=== PATIENT | male | born 1945 | race Caucasian/White ===

== ENCOUNTER → 2016-11-11 | Outpatient (CLI) | payer MEDICARE | END | disposition home or self-care (01) | LOC: GMAB 10:39 | PROVIDERS: ATTEND Family Medicine | DX: Z12.5 Encounter for screening for malignant neoplasm of prostate (principal); I10 Essential (primary) hypertension; R56.9 Unspecified convulsions | CPT/HCPCS: 80185; 84443; G0103 ==

== ENCOUNTER → 2017-06-24 | Outpatient (CLI) | payer MEDICARE | END | disposition home or self-care (01) | LOC: GMAB 17:56 | PROVIDERS: ATTEND Family Medicine | DX: R56.9 Unspecified convulsions (principal) ==

== ENCOUNTER → 2017-12-17 | Outpatient (CLI) | payer MEDICARE | LOC: GMAB 10:42 | PROVIDERS: ATTEND Family Medicine | DX: R56.9 Unspecified convulsions (principal); I10 Essential (primary) hypertension; Z12.5 Encounter for screening for malignant neoplasm of prostate | CPT/HCPCS: 80185; G0103 ==

== ENCOUNTER 2018-03-13 22:10 | Emergency (ER) | payer MEDICARE, OTHER ==
--- NOTE | 2018-03-13 22:30 | ED.PDOC ---
History of Present Illness - General Chief Complaint: General Stated Complaint: Dizziness Time Seen by Provider: 03/13/18 22:26 Additional Information: 72 YEAR OLD WITH KNOWN HISTORY OF HTN CAD SP CABAG IN 2013 LONG STANDING HISTORY OF SEIZURE DISORDER ( GRAND MAL ) ON DILANTIN PRESENTS WITH HISTORY OF VERTIGO FOR LAST 24 HOURS HE HAS CHRONIC TINNITUS SOME LOSS OF HEARING HE HAS NO HEADACHE NO NUMBNESS OR WEAKNESS IN THE EXTREMITIES SYMPTOMS ARE WORSE WITH MOVEMENT OF HIS HEAD - History of Present Illness Allergies/Adverse Reactions: Allergies NO KNOWN ALLERGY Allergy (Verified 03/01/15 10:05) Home Medications: Ambulatory Orders Atorvastatin Calcium [Lipitor] 20 mg PO DAILY 02/27/15 Aspirin [Aspirin Adult Low Dose] 81 mg PO DAILY 03/01/15 Phenytoin Sodium Cap Extended [Dilantin Cap] 100 mg PO DAILY 03/01/15 Metoprolol Tartrate [Lopressor] 50 mg PO BID #60 tab 03/03/15 Diazepam [Valium] 2 mg PO Q8HRS #1 tab 03/13/18 Meclizine HCl [Antivert] 12.5 mg PO Q6HRS #30 tab 03/13/18 Past Medical History (General) - Patient Medical History Hx Seizures: Yes Hx Stroke: No Hx Asthma: No Hx of COPD: No Hx Cardiac Disorders: Yes Hx Congestive Heart Failure: No Hx Pacemaker: No Hx Hypertension: Yes Hx Diabetes: No Hx Gastroesophageal Reflux: No Hx MRSA: No - Vaccination History Hx Influenza Vaccination: No Hx Pneumococcal Vaccination: Yes - 2013 - Social History Hx Tobacco Use: Yes Hx Alcohol Use: No Hx Substance Use: No Hx Substance Use Treatment: No Hx Depression: No Hx Physical Abuse: No Hx Emotional Abuse: No Family Medical History - Family History Father Family History: Unknown Living Status: Hx Cardiac Disease: Yes Progress - Results/Orders Results/Orders: Laboratory Tests 03/13/18 03/13/18 03/13/18 22:34 22:34 22:34 WBC 6.2 RBC 4.81 Hgb 15.0 Hct 44.1 MCV 91.7 MCH 31.1 H MCHC 33.9 RDW 12.7 Plt Count 147 MPV 8.9 Absolute Neuts (auto) 3.60 Absolute Lymphs (auto) 1.80 Absolute Monos (auto) 0.60 Absolute Eos (auto) 0.20 Absolute Basos (auto) 0.00 Neutrophils % 58.4 Lymphocytes % 28.8 Monocytes % 9.3 H Eosinophils % 2.7 Basophils % 0.8 PT 10.5 INR 1.05 PTT (SP) 26.3 Sodium 138 Potassium 3.7 Chloride 104 Carbon Dioxide 25 Anion Gap 12.7 BUN 19 H Creatinine 1.40 H BUN/Creatinine Ratio 13.6 Random Glucose 133 H Serum Osmolality 279.9 Calcium 8.9 Total Bilirubin 0.3 AST 22 ALT 22 Alkaline Phosphatase 73 Serum Total Protein 6.8 Albumin 3.9 Globulin 2.9 Albumin/Globulin Ratio 1.3 Phenytoin 03/13/18 22:43 WBC RBC Hgb Hct MCV MCH MCHC RDW Plt Count MPV Absolute Neuts (auto) Absolute Lymphs (auto) Absolute Monos (auto) Absolute Eos (auto) Absolute Basos (auto) Neutrophils % Lymphocytes % Monocytes % Eosinophils % Basophils % PT INR PTT (SP) Sodium Potassium Chloride Carbon Dioxide Anion Gap BUN Creatinine BUN/Creatinine Ratio Random Glucose Serum Osmolality Calcium Total Bilirubin AST ALT Alkaline Phosphatase Serum Total Protein Albumin Globulin Albumin/Globulin Ratio Phenytoin 3.0 L WITH ANTIVERT AND VALIUM HE IS FEELING LITTLE BETTER CAN BE DISCHARGED HOME Departure - Departure Clinical Impression: Vertigo, CAD (coronary artery disease) of artery bypass graft, Seizure disorder Time of Disposition: 23:36 Disposition: Discharge to Home or Self Care Departure Forms: ED Discharge - Pt. Copy, Patient Portal Self Enrollment Diet: resume usual diet Referrals: CITLALI FITCH MD [Primary Care Provider] - 1-2 Weeks Prescriptions: Meclizine HCl [Antivert] 12.5 mg PO Q6HRS #30 tab Diazepam [Valium] 2 mg PO Q8HRS #1 tab Home Medications: Ambulatory Orders Atorvastatin Calcium [Lipitor] 20 mg PO DAILY 02/27/15 Aspirin [Aspirin Adult Low Dose] 81 mg PO DAILY 03/01/15 Phenytoin Sodium Cap Extended [Dilantin Cap] 100 mg PO DAILY 03/01/15 Metoprolol Tartrate [Lopressor] 50 mg PO BID #60 tab 03/03/15 Diazepam [Valium] 2 mg PO Q8HRS #1 tab 03/13/18 Meclizine HCl [Antivert] 12.5 mg PO Q6HRS #30 tab 03/13/18
[2018-03-13] MEDS ORDERED: MECLIZINE HCL 12.5 MG TAB PO ONE (22:34)
[2018-03-13] MEDS ORDERED: diazePAM 5 MG TAB PO ONE (22:34)
[2018-03-13 22:37] VITALS: TEMP 98.2
[2018-03-14 00:08] VITALS: BP 150/83; O2SAT 96
== END 2018-03-13 23:47 | disposition home or self-care (01) ==
LOC: ER 22:10
DX: R42 Dizziness and giddiness (principal); I25.10 Atherosclerotic heart disease of native coronary artery without angina pectoris; G40.909 Epilepsy, unspecified, not intractable, without status epilepticus; H93.19 Tinnitus, unspecified ear; I10 Essential (primary) hypertension; Z95.1 Presence of aortocoronary bypass graft; Z79.82 Long term (current) use of aspirin; Z79.899 Other long term (current) drug therapy; Z87.891 Personal history of nicotine dependence

== ENCOUNTER → 2018-04-10 | Outpatient (CLI) | payer MEDICARE ==
--- NOTE | 2018-04-11 06:42 | US ---
EXAM DESCRIPTION: Abdomen,Complete: Ultrasound. CLINICAL HISTORY: R10.12. Left upper quadrant pain. COMPARISON: None Available. TECHNIQUE: Transabdominal scannin-dimensional and Doppler modes. FINDINGS: Gallbladder: At least 2 echogenic shadowing gallstones. One adjacent to the neck measures 1.8 cm. Wall thickness 2.8 mm. No fluid. Nontender with transducer pressure. Common bile duct: 5.4 mm, normal caliber. Liver: Minimally increased echogenicity. Long axis of the right lobe is 13.9 cm. Normal ducts. Normal caliber and flow direction of the portal vein. Smooth capsule. No ascites. Pancreas: Normal size and echogenicity. Duct not seen. Abdominal aorta: Normal caliber from the proximal segment to the distal bifurcation. IVC: visualized; normal caliber. Spleen normal echogenicity; long axis measurement is 9.9 cm. Right kidney: 10.8 cm long axis. Midrenal cortical thickness 11 mm. Normal echogenicity. No hydronephrosis or perinephric fluid. Left kidney: 9.6 cm long axis. Midrenal cortical thickness 11 mm. Normal echogenicity. No hydronephrosis or perinephric fluid. IMPRESSION: 1. Cholelithiasis of the gallbladder with no wall thickening or fluid. Nontender with transducer pressure. Normal caliber of the common bile duct. 2. Borderline steatosis of the liver with normal size. Ducts and vascularity unremarkable. Pancreas is negative. 3. Bilateral kidneys with cortical thinning but normal echogenicity and no hydronephrosis. Spleen is unremarkable. Normal caliber of the abdominal aorta and IVC. Electronically signed by: Soham Garcia MD 04/11/2018 6:41 AM CDT
== END ==
LOC: US 13:24
PROVIDERS: ATTEND Family Medicine
DX: K80.20 Calculus of gallbladder without cholecystitis without obstruction (principal); K76.0 Fatty (change of) liver, not elsewhere classified; R10.12 Left upper quadrant pain

== ENCOUNTER 2018-05-23 19:59 | Emergency (ER) | payer MEDICARE, OTHER ==
--- NOTE | 2018-05-23 20:21 | ED.PDOC ---
History of Present Illness - General Chief Complaint: Cardiovascular Problem Stated Complaint: feeling jittery, heart "racy" Time Seen by Provider: 05/23/18 20:04 Source: patient Exam Limitations: no limitations - History of Present Illness Initial Comments: Ephraim De La Rosa 72 y/o male stated that he feels his abdomen sahking everytime he gets up from sleep and also on waking up in am for the last 2 days .seen Md yesterday for a follow up on his constipation and had dosage adjustments on Linszess medication for his constipation.Denies N/V or pain after eating. Timing/Duration: other - 2 days Severity: moderate Improving Factors: nothing Worsening Factors: nothing Associated Symptoms: other - see hpi Allergies/Adverse Reactions: Allergies NO KNOWN ALLERGY Allergy (Verified 03/01/15 10:05) Home Medications: Ambulatory Orders Atorvastatin Calcium [Lipitor] 20 mg PO DAILY 02/27/15 Aspirin [Aspirin Adult Low Dose] 81 mg PO DAILY 03/01/15 Phenytoin Sodium Cap Extended [Dilantin Cap] 100 mg PO DAILY 03/01/15 Metoprolol Tartrate [Lopressor] 50 mg PO BID #60 tab 03/03/15 Diazepam [Valium] 2 mg PO Q8HRS #1 tab 03/13/18 Meclizine HCl [Antivert] 12.5 mg PO Q6HRS #30 tab 03/13/18 Review of Systems - Review of Systems Gastrointestinal/Abdominal: States: see HPI All other Systems: Reviewed and Negative, No Change from Baseline Past Medical History (General) - Patient Medical History Hx Seizures: Yes Hx Stroke: No Hx Asthma: No Hx of COPD: No Hx Cardiac Disorders: Yes Hx Congestive Heart Failure: No Hx Pacemaker: No Hx Hypertension: Yes Hx Diabetes: No Hx Gastroesophageal Reflux: No Hx MRSA: No Surgical History: coronary bypass surgery, other - colonoscopy,EGD - Vaccination History Hx Influenza Vaccination: No Hx Pneumococcal Vaccination: Yes - 2013 - Social History Hx Tobacco Use: Yes Hx Alcohol Use: No Hx Substance Use: No Hx Substance Use Treatment: No Hx Depression: No Hx Physical Abuse: No Hx Emotional Abuse: No Family Medical History - Family History Father Family History: Unknown Living Status: Hx Cardiac Disease: Yes - dad Hx Family Cancer: Yes - pancreas-sister;pituitary-mom Physical Exam - Physical Exam General Appearance: Alert, Comfortable, No apparent distress Eye Exam: bilateral normal Ears, Nose, Throat: hearing grossly normal, normal ENT inspection, normal pharynx Neck: non-tender, full range of motion, supple Respiratory: chest non-tender, lungs clear, normal breath sounds Cardiovascular/Chest: normal peripheral pulses, regular rate, rhythm, no murmur Peripheral Pulses: radial,right: 2+, radial,left: 2+ Gastrointestinal/Abdominal: non tender, soft, no organomegaly, no pulsatile mass Back Exam: normal inspection, no CVA tenderness, no vertebral tenderness Extremity: no pedal edema, no calf tenderness Neurologic: alert, oriented x 3 Progress - Progress Progress: 05/23/18 20:32 Vital Signs - 8 hr 05/23/18 20:15 Temperature 97.3 F L Pulse Rate [ 72 left] Respiratory 18 Rate O2 Sat by Pulse 98 Oximetry - Results/Orders Results/Orders: 05/23/18 20:40 CARDIAC PANEL,ER Stat HEPATIC FUNCTION PANEL Stat PHENYTOIN (DILANTIN) Stat Laboratory Results - last 24 hr 05/23/18 05/23/18 20:40 21:00 WBC 6.7 RBC 4.81 Hgb 14.9 Hct 44.0 MCV 91.4 MCH 31.0 MCHC 33.9 RDW 13.2 Plt Count 165 MPV 9.0 Absolute Neuts (auto) 4.50 Absolute Lymphs (auto) 1.50 Absolute Monos (auto) 0.60 Absolute Eos (auto) 0.10 Absolute Basos (auto) 0.00 Neutrophils % 67.5 Lymphocytes % 22.4 Monocytes % 8.2 Eosinophils % 1.2 Basophils % 0.7 PT 10.7 INR 1.07 PTT (SP) 25.9 Sodium 140 Potassium 3.7 Chloride 103 Carbon Dioxide 28 Anion Gap 12.7 BUN 14 Creatinine 1.05 BUN/Creatinine Ratio 13.3 Random Glucose 113 H Serum Osmolality 280.7 Calcium 9.3 Magnesium 2.1 Total Bilirubin 0.4 Direct Bilirubin < 0.1 Indirect Bilirubin 0.3 AST 20 ALT 23 Alkaline Phosphatase 77 Creatine Kinase 93 CK-MB (CK-2) 1.6 Troponin I < 0.02 Serum Total Protein 6.9 Albumin 4.1 Urine Color Yellow Urine Appearance Clear Urine pH 6.0 Ur Specific [place] 1.010 Urine Protein Negative Urine Glucose (UA) Negative Urine Ketones Negative Urine Blood Negative Urine Nitrite Negative Urine Bilirubin Negative Urine Urobilinogen 0.2 Ur Leukocyte Esterase Negative Urine RBC 0 Urine WBC 0 Ur Epithelial Cells 0 Urine Bacteria Rare Phenytoin 2.9 L - EKG/XRAY/CT EKG: Sinus, no ST T wave changes Comments: HR-77;LAE CT Ordered: Yes - abd/pelvis: cholelithiasis no cholecystitis Departure - Departure Clinical Impression: Abdominal discomfort Cholelithiasis NOS Qualifiers: Cholelithiasis location: gallbladder Cholecystitis presence: without cholecystitis Biliary obstruction: without biliary obstruction Qualified Code(s) : K80.20 - Calculus of gallbladder without cholecystitis without obstruction Time of Disposition: 22:10 Disposition: Discharge to Home or Self Care Condition: Fair Departure Forms: ED Discharge - Pt. Copy, Patient Portal Self Enrollment Instructions: Constipation in Adults, Constipation, Adult (DC), High Fiber Diet , Gallstones (DC), Gallstones Referrals: JURGEN MERRILL MD [Primary Care Provider] - 1-2 Weeks Home Medications: Ambulatory Orders Atorvastatin Calcium [Lipitor] 20 mg PO DAILY 02/27/15 Aspirin [Aspirin Adult Low Dose] 81 mg PO DAILY 03/01/15 Phenytoin Sodium Cap Extended [Dilantin Cap] 100 mg PO DAILY 03/01/15 Metoprolol Tartrate [Lopressor] 50 mg PO BID #60 tab 03/03/15 Diazepam [Valium] 2 mg PO Q8HRS #1 tab 03/13/18 Meclizine HCl [Antivert] 12.5 mg PO Q6HRS #30 tab 03/13/18 Additional Instructions: Stop taking Linzess;call your primary Md 27 May 2018 for follow up;Return to ER as needed
[2018-05-23 20:23] VITALS: TEMP 97.3
--- NOTE | 2018-05-23 21:58 | CT ---
EXAM DESCRIPTION: Abdoment/Pelvis w/o Contrast CLINICAL HISTORY: abdominal discomfort COMPARISON: None Available. TECHNIQUE: Contiguous axial images of the abdomen and pelvis were obtained followed by reconstruction images. This exam was performed according to our departmental dose-optimization program, which includes automated exposure control, adjustment of the mA and/or kV according to patient size and/or use of iterative reconstruction technique. FINDINGS: There are calcified gallstones without pericholecystic fluid or gallbladder wall thickening. There is pancreatic atrophy. Fat but no bowel extends into a right inguinal hernia. There is scar at the left lung base. The liver, spleen, pancreas and kidneys are within normal limits. There is no hydronephrosis or renal stones. The gallbladder is otherwise unremarkable by CT criteria. Adrenal glands are within normal limits. Aorta is of normal caliber and tapering. There is no free fluid in the abdomen or pelvis. There is no bowel obstruction. There is no stranding of the mesenteric fat to suggest an inflammatory response. The appendix is within normal limits. There is no pericecal inflammation. IMPRESSION: Gallstones with no evidence of acute cholecystitis. No other acute abnormality. Electronically signed by: Soham Rosas 05/23/2018 9:57 PM SAMPLES AND REPAIRS PREPARER
[2018-05-23 22:21] VITALS: BP 133/94; O2SAT 98
== END 2018-05-23 22:21 | disposition home or self-care (01) ==
LOC: ER 19:59
DX: K80.20 Calculus of gallbladder without cholecystitis without obstruction (principal); I10 Essential (primary) hypertension; I51.9 Heart disease, unspecified; Z95.1 Presence of aortocoronary bypass graft; Z87.891 Personal history of nicotine dependence; Z79.82 Long term (current) use of aspirin; Z79.899 Other long term (current) drug therapy

== ENCOUNTER → 2018-08-10 | Emergency (ER) | payer MEDICARE, OTHER | LOC: ER 19:05 | DX: M62.838 Other muscle spasm (principal); Z53.21 Procedure and treatment not carried out due to patient leaving prior to being seen by health care provider ==

== ENCOUNTER 2018-08-14 15:15 | Emergency (ER) | payer MEDICARE, OTHER ==
[2018-08-14 15:43] VITALS: O2SAT 98
--- NOTE | 2018-08-14 16:34 | ED.PDOC ---
History of Present Illness - General Chief Complaint: General Stated Complaint: Shaking and abdominal pain Time Seen by Provider: 08/14/18 16:15 Source: patient Exam Limitations: no limitations - History of Present Illness Initial Comments: THIS PATIENT COMES IN WITH AN UNUSUAL PRESENTATION OF ABDOMINAL DISCOMFORT. HE VOICES THAT THE ABDOMEN SHAKES AND THEN HE GOES INTO A SHAKING SPELL THAT MIGHT LAST ONE HOUR OS SO. HE DOES HAVE SEIZURE DISORDERS BUT THE FAMILY SAYS THESE ARE NOT SEIZURES. HE HAS HAD ABOUT 3-4 EPISODES IN THE LAST 6 WEEKS. DENIES ANY FEVER. Timing/Duration: other - INTERMITTENT Severity: moderate Improving Factors: nothing Worsening Factors: nothing Associated Symptoms: denies symptoms, malaise Allergies/Adverse Reactions: Allergies NO KNOWN ALLERGY Allergy (Verified 08/14/18 15:43) Home Medications: Ambulatory Orders Atorvastatin Calcium [Lipitor] 20 mg PO DAILY 02/27/15 Aspirin [Aspirin Adult Low Dose] 81 mg PO DAILY 03/01/15 Phenytoin Sodium Cap Extended [Dilantin Cap] 100 mg PO DAILY 03/01/15 Metoprolol Tartrate [Lopressor] 50 mg PO BID #60 tab 03/03/15 Diazepam [Valium] 2 mg PO Q8HRS #1 tab 03/13/18 Review of Systems - Review of Systems Constitutional: States: no symptoms reported EENTM: States: no symptoms reported Respiratory: States: no symptoms reported Cardiology: States: no symptoms reported Gastrointestinal/Abdominal: States: abdominal pain, nausea Musculoskeletal: States: no symptoms reported Skin: States: no symptoms reported Neurological: States: no symptoms reported Endocrine: States: no symptoms reported Hematologic/Lymphatic: States: no symptoms reported Past Medical History (General) - Patient Medical History Hx Seizures: Yes Hx Stroke: No Hx Asthma: No Hx of COPD: No Hx Cardiac Disorders: Yes - triple bypass 5 years Hx Congestive Heart Failure: No Hx Pacemaker: No Hx Hypertension: Yes Hx Diabetes: No Hx Gastroesophageal Reflux: No Hx MRSA: No Surgical History: tonsillectomy, other - Vaccination History Hx Tetanus, Diphtheria Vaccination: No Hx Influenza Vaccination: No Hx Pneumococcal Vaccination: Yes Immunizations Up to Date: Yes - Social History Hx Tobacco Use: Yes Hx Alcohol Use: No Hx Substance Use: No Hx Substance Use Treatment: No Hx Depression: No Hx Physical Abuse: No Hx Emotional Abuse: No Family Medical History - Family History Father Family History: Unknown Living Status: Hx Cardiac Disease: Yes - dad Hx Family Cancer: Yes - pancreas-sister;pituitary-mom Physical Exam - Physical Exam General Appearance: Alert, No apparent distress, Well Developed, Well Groomed, Well Hydrated, Well Nourished Eye Exam: bilateral normal Ears, Nose, Throat: hearing grossly normal, normal ENT inspection Neck: non-tender, full range of motion, supple Respiratory: chest non-tender, lungs clear, normal breath sounds, no respiratory distress, no accessory muscle use Cardiovascular/Chest: normal peripheral pulses, regular rate, rhythm, no edema, no gallop, no JVD Peripheral Pulses: radial,right: 2+, radial,left: 2+ Gastrointestinal/Abdominal: normal bowel sounds, non tender, soft, no organomegaly, no pulsatile mass, other - NO MASSES NO HEPATOSPLENOMEGALY NOTED Rectal Exam: deferred Back Exam: normal inspection Extremity: normal range of motion, non-tender Progress - Results/Orders Results/Orders: 08/14/18 16:45 EKG STAT 08/14/18 18:16 Phenytoin Sodium Cap Extended [Dilantin Cap] 400 mg PO ONCE ONE Laboratory Results WBC 5.9 K/mm3 (4.8-10.8) 08/14/18 16:35 RBC 5.01 M/mm3 (4.70-6.10) 08/14/18 16:35 Hgb 15.6 gm/dL (14.0-18.0) 08/14/18 16:35 Hct 45.8 % (42.0-52.0) 08/14/18 16:35 MCV 91.3 fl (80.0-94.0) 08/14/18 16:35 MCH 31.2 pg (27.0-31.0) H 08/14/18 16:35 MCHC 34.1 g/dL (33.0-37.0) 08/14/18 16:35 RDW 12.7 % (11.5-14.5) 08/14/18 16:35 Plt Count 159 K/mm3 (130-400) 08/14/18 16:35 MPV 9.5 fl (7.40-10.4) 08/14/18 16:35 Absolute Neuts (auto) 4.00 K/uL (1.8-6.8) 08/14/18 16:35 Absolute Lymphs (auto) 1.30 K/uL (1.0-3.4) 08/14/18 16:35 Absolute Monos (auto) 0.50 K/uL (0.2-0.8) 08/14/18 16:35 Absolute Eos (auto) 0.10 K/uL (0.0-0.4) 08/14/18 16:35 Absolute Basos (auto) 0.00 K/uL (0.0-0.1) 08/14/18 16:35 Neutrophils % 68.3 % (42.0-78.0) 08/14/18 16:35 Lymphocytes % 21.5 % (20.0-50.0) 08/14/18 16:35 Monocytes % 8.6 % (2.0-9.0) 08/14/18 16:35 Eosinophils % 1.0 % (1.0-5.0) 08/14/18 16:35 Basophils % 0.6 % (0.0-2.0) 08/14/18 16:35 Sodium 139 mmol/L (135-145) 08/14/18 16:35 Potassium 3.7 mmol/L (3.6-5.0) 08/14/18 16:35 Chloride 104 mmol/L (101-111) 08/14/18 16:35 Carbon Dioxide 24 mmol/L (21-31) 08/14/18 16:35 Anion Gap 14.7 (12-18) 08/14/18 16:35 BUN 16 mg/dL (7-18) 08/14/18 16:35 Creatinine 0.87 mg/dL (0.6-1.3) 08/14/18 16:35 BUN/Creatinine Ratio 18.4 (10-20) 08/14/18 16:35 Random Glucose 104 mg/dL (70-105) 08/14/18 16:35 Serum Osmolality 279.0 mOsm/L (275-295) 08/14/18 16:35 Calcium 9.4 mg/dL (8.4-10.2) 08/14/18 16:35 Total Bilirubin 0.5 mg/dL (0.2-1.0) 08/14/18 16:35 AST 19 IU/L (10-42) 08/14/18 16:35 ALT 23 IU/L (10-60) 08/14/18 16:35 Alkaline Phosphatase 80 IU/L (42-121) 08/14/18 16:35 Serum Total Protein 7.4 gm/dL (6.4-8.2) 08/14/18 16:35 Albumin 4.2 g/dl (3.2-5.5) 08/14/18 16:35 Globulin 3.2 gm/dL (2.3-3.5) 08/14/18 16:35 Albumin/Globulin Ratio 1.3 (1.1-1.9) 08/14/18 16:35 Lipase 16 U/L (22-51) L 08/14/18 16:35 Urine Color Yellow (Yellow) 08/14/18 17:40 Urine Appearance Clear (Clear) 08/14/18 17:40 Urine pH 6.5 (4.5-7.8) 08/14/18 17:40 Ur Specific [place] 1.015 (1.005-1.030) 08/14/18 17:40 Urine Protein Negative mg/dL 08/14/18 17:40 Urine Glucose (UA) Negative mg/dL (Negative) 08/14/18 17:40 Urine Ketones Negative mg/dL (NEGATIVE) 08/14/18 17:40 Urine Blood Negative (Negative) 08/14/18 17:40 Urine Nitrite Negative 08/14/18 17:40 Urine Bilirubin Negative (NEGATIVE) 08/14/18 17:40 Urine Urobilinogen 0.2 mg/dL (0.2-1.0) 08/14/18 17:40 Ur Leukocyte Esterase Negative (Negative) 08/14/18 17:40 Urine RBC 0 /hpf 08/14/18 17:40 Urine WBC 0 /hpf 08/14/18 17:40 Ur Epithelial Cells 0 /hpf 08/14/18 17:40 Urine Bacteria 0 08/14/18 17:40 Phenytoin 3.5 ug/mL (10.0-20.0) L 08/14/18 16:35 Departure - Departure Clinical Impression: Seizure disorder, Shaking Time of Disposition: 18:19 Disposition: Discharge to Home or Self Care Condition: Good Departure Forms: ED Discharge - Pt. Copy, Patient Portal Self Enrollment Diet: resume usual diet Referrals: JURGEN MERRILL MD [Primary Care Provider] - 1-2 Weeks Home Medications: Ambulatory Orders Atorvastatin Calcium [Lipitor] 20 mg PO DAILY 02/27/15 Aspirin [Aspirin Adult Low Dose] 81 mg PO DAILY 03/01/15 Phenytoin Sodium Cap Extended [Dilantin Cap] 100 mg PO DAILY 03/01/15 Metoprolol Tartrate [Lopressor] 50 mg PO BID #60 tab 03/03/15 Diazepam [Valium] 2 mg PO Q8HRS #1 tab 03/13/18
--- NOTE | 2018-08-14 16:54 | RAD ---
EXAM DESCRIPTION: Chest,1 View CLINICAL HISTORY: 72 years Male, SOB COMPARISON: Previous study April 30, 2015 TECHNIQUE: AP portable chest. FINDINGS: Heart size is prominent with normal pulmonary vascularity. Sternotomy wires are present. No consolidating infiltrate. No pulmonary mass or worrisome nodule. No pneumothorax or pleural effusion. Bones are unremarkable. IMPRESSION: No acute process is identified in the chest. Electronically signed by: Arpit Dent MD 08/14/2018 4:51 PM MACHINERY CLEANER
[2018-08-14] MEDS ORDERED: PHENYTOIN SODIUM CAP EXTENDED 100 MG CAP PO ONE (18:16)
[2018-08-14 18:48] VITALS: BP 136/72; TEMP 97.3
== END 2018-08-14 18:48 | disposition home or self-care (01) ==
LOC: ER 15:15
DX: G40.909 Epilepsy, unspecified, not intractable, without status epilepticus (principal); R10.9 Unspecified abdominal pain; I51.9 Heart disease, unspecified; I10 Essential (primary) hypertension; Z95.1 Presence of aortocoronary bypass graft; Z87.891 Personal history of nicotine dependence; Z79.82 Long term (current) use of aspirin; Z79.899 Other long term (current) drug therapy

== ENCOUNTER → 2018-08-19 | Outpatient (CLI) | payer MEDICARE, OTHER ==
--- NOTE | 2018-08-19 13:14 | US ---
EXAM DESCRIPTION: Abdomen,Complete CLINICAL HISTORY: IRRITABLE BOWEL SYNDROME WITH CONSTIPATION COMPARISON: Previous abdominal sonogram April 10, 2018, CT abdomen and pelvis May 23, 2018 TECHNIQUE: Complete abdominal ultrasound FINDINGS: Visualized portions of the pancreas are unremarkable. No peripancreatic fluid. Bowel gas obscures some areas. Normal caliber of the aorta. Normal appearance of the inferior vena cava. Liver parenchyma is homogeneous in texture with normal echogenicity. No liver mass or intrahepatic bile duct dilatation. No liver surface irregularity. Normal appearance of hepatic veins and portal vein. Gallbladder appears normal in size. Positive shadowing intraluminal gallstones measuring up to 1.6 cm. No gallbladder wall thickening. Sonographic Carpenter sign was reported as negative. Common bile duct is normal in caliber measuring 4.0 mm. The right kidney measures 10.4 cm in length. Normal renal cortical echogenicity. The renal cortical thickness appears normal. No right renal mass, shadowing stone or cyst. There is no hydronephrosis. Spleen is normal in size. No focal splenic lesion. The left kidney measures 10 cm in length. Normal renal cortical echogenicity. Cortex appears mildly thinned diffusely. No left renal mass, shadowing stone or cyst. There is no hydronephrosis. No change compared to the previous sonogram April 10, 2018. Gallstones were seen on the CT abdomen May 23, 2018. IMPRESSION: Gallstones without other changes to suggest acute cholecystitis. Electronically signed by: Arpit Dent MD 08/19/2018 1:11 PM FILTER ASSEMBLER
== END ==
LOC: US 08:25
PROVIDERS: ATTEND Family Medicine
DX: K58.1 Irritable bowel syndrome with constipation (principal); K80.20 Calculus of gallbladder without cholecystitis without obstruction

== ENCOUNTER → 2018-09-15 | Outpatient (CLI) | payer MEDICARE | LOC: GMAE 11:56 | PROVIDERS: ATTEND Family Medicine | DX: R56.9 Unspecified convulsions (principal) ==

== ENCOUNTER 2019-05-14 10:14 | Emergency (ER) | payer MEDICARE, OTHER ==
[2019-05-14] MEDS ORDERED: SODIUM CHLORIDE 0.9% (FLUSH) 10 ML SYG IV PRN (10:25)
--- NOTE | 2019-05-14 10:29 | ED.PDOC ---
History of Present Illness - General Chief Complaint: General Stated Complaint: Uncontrolled shaking to stomach Time Seen by Provider: 05/14/19 10:21 Source: patient, RN notes reviewed, Vital Signs reviewed, family - History of Present Illness Initial Comments: 73 yo male that presents to ED for "shaking" in upper abdomen for the past 30 minutes. States he feels "shaking in bilateral upper abdomen that he cannot stop. Denies CP, abdominal pain, NVD, fever, chills. Has had constipation which is chronic for him. States he has had this shaking in the past when his PCP started him on Linzess and it stopped when he stopped the medication. Denies any new medications. Allergies/Adverse Reactions: Allergies NO KNOWN ALLERGY Allergy (Verified 05/14/19 10:36) Home Medications: Ambulatory Orders Atorvastatin Calcium [Lipitor] 20 mg PO DAILY 02/27/15 Aspirin [Aspirin Adult Low Dose] 81 mg PO DAILY 03/01/15 Phenytoin Sodium Cap Extended [Dilantin Cap] 100 mg PO BID 03/01/15 Metoprolol Tartrate [Lopressor] 50 mg PO BID #60 tab 03/03/15 Diazepam [Valium] 2 mg PO Q8HRS #1 tab 03/13/18 Linaclotide [Linzess] 2 capsule PO DAILY 05/14/19 Phenytoin Sodium Extended 200 mg PO .MOWEFRBEDTIME 05/14/19 Review of Systems - Review of Systems Constitutional: Denies: chills, fever, weakness EENTM: Denies: blurred vision, ear pain, throat pain Respiratory: Denies: cough, orthopnea, short of breath Cardiology: Denies: chest pain, edema, palpitations, syncope Gastrointestinal/Abdominal: States: other - "shaking in abdomen". 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 Hx Congestive Heart Failure: No Hx Pacemaker: No Hx Hypertension: Yes Hx Diabetes: No Hx Gastroesophageal Reflux: No Hx MRSA: No - Vaccination History Hx Tetanus, Diphtheria Vaccination: No Hx Influenza Vaccination: No Hx Pneumococcal Vaccination: Yes - Social History Hx Tobacco Use: Yes Hx Alcohol Use: No Hx Substance Use: No Hx Substance Use Treatment: No Hx Depression: No Hx Physical Abuse: No Hx Emotional Abuse: No Family Medical History - Family History Father Family History: Unknown Living Status: Hx Cardiac Disease: Yes - dad Hx Family Cancer: Yes - pancreas-sister;pituitary-mom Physical Exam - Physical Exam General Appearance: Alert, Comfortable, No apparent distress, Other - No shaking or tremors noted Ears, Nose, Throat: other - No tonsilar edema or erythema Neck: non-tender, full range of motion, supple Respiratory: chest non-tender, lungs clear, normal breath sounds, no respiratory distress Cardiovascular/Chest: regular rate, rhythm, no edema, no murmur Gastrointestinal/Abdominal: normal bowel sounds, non tender, soft, no pulsatile mass, other - No peritoneal signs Back Exam: normal inspection, no CVA tenderness, no vertebral tenderness Extremity: normal range of motion, normal inspection, no pedal edema Neurologic: no motor/sensory deficits, alert, normal mood/affect Skin Exam: normal color Progress - Progress Progress: 05/14/19 12:46 Pt presents with "shaking" sensation to upper abdomen. States he has had this off and on for the past year and it was thought to be due to Linzess, but he stopped the medication 3 weeks ago and it has persisted. Abdominal exam is benign. Labs and VS reassuring. CT A/P shows constipation which is chronic for him. No sign of acute abdomen at this time. Will continue laxatives at home and f/u with his PCP in 1-2 days for recheck. srp given. - Results/Orders Results/Orders: EKG--Sinus rhythm, rate 77, normal intervals, no change from 08/14/18 05/14/19 10:25 Sodium Chloride 0.9% (Flush) [Saline Flush Syringe] 10 ml IV PRN PRN 05/14/19 10:26 Hold Metformin x 48Hrs [id number] 05/14/19 10:30 EKG STAT Laboratory Results - last 24 hr 05/14/19 05/14/19 05/14/19 10:37 10:50 11: WBC 7.2 RBC 4.98 Hgb 15.6 Hct 45.7 MCV 91.7 MCH 31.4 H MCHC 34.2 RDW 13.0 Plt Count 159 MPV 8.9 Absolute Neuts (auto) 4.50 Absolute Lymphs (auto) 1.90 Absolute Monos (auto) 0.70 Absolute Eos (auto) 0.10 Absolute Basos (auto) 0.10 Neutrophils % 62.7 Lymphocytes % 26.4 Monocytes % 9.2 H Eosinophils % 1.0 Basophils % 0.7 Sodium Potassium Chloride Carbon Dioxide Anion Gap BUN Creatinine BUN/Creatinine Ratio Random Glucose Serum Osmolality Calcium Total Bilirubin AST ALT Alkaline Phosphatase Troponin I Serum Total Protein Albumin Globulin Albumin/Globulin Ratio Lipase 14 L Urine Color Yellow Urine Appearance Clear Urine pH 7.0 Ur Specific [place] 1.010 Urine Protein Negative Urine Glucose (UA) Negative Urine Ketones Negative Urine Blood Negative Urine Nitrite Negative Urine Bilirubin Negative Urine Urobilinogen 0.2 Ur Leukocyte Esterase Negative Urine RBC 0 Urine WBC 0-1 Ur Epithelial Cells 0 Urine Bacteria 0 Phenytoin 05/14/19 05/14/19 05/14/19 11:19 11:19 11:19 WBC RBC Hgb Hct MCV MCH MCHC RDW Plt Count MPV Absolute Neuts (auto) Absolute Lymphs (auto) Absolute Monos (auto) Absolute Eos (auto) Absolute Basos (auto) Neutrophils % Lymphocytes % Monocytes % Eosinophils % Basophils % Sodium 140 Potassium 3.7 Chloride 105 Carbon Dioxide 24 Anion Gap 14.7 BUN 14 Creatinine 0.93 BUN/Creatinine Ratio 15.1 Random Glucose 117 H Serum Osmolality 280.9 Calcium 9.1 Total Bilirubin 0.4 AST 21 ALT 24 Alkaline Phosphatase 74 Troponin I < 0.02 Serum Total Protein 7.2 Albumin 4.1 Globulin 3.1 Albumin/Globulin Ratio 1.3 Lipase Urine Color Urine Appearance Urine pH Ur Specific [place] Urine Protein Urine Glucose (UA) Urine Ketones Urine Blood Urine Nitrite Urine Bilirubin Urine Urobilinogen Ur Leukocyte Esterase Urine RBC Urine WBC Ur Epithelial Cells Urine Bacteria Phenytoin 5.[address] Abdomen and Pelvis MPRESSION: 1. At least 2 rim calcified gallstones in the gallbladder greatest diameter 1.5 cm. Stable since the prior study. No surrounding fatty inflammatory changes or fluid. Common bile but normal caliber. Fatty pancreas. 2. Moderate constipation proximal to thirds of the colon, minimal fecal matter distal colon. No complications. 3. Mild aortic dilatation, not meeting criteria for aneurysm. Stable since the prior study. No follow-up imaging is recommended. Reference: J Am Julio César Radiol 2013;10:789-794. Electronically signed by: Soham Garcia MD 05/14/2019 12:34 PM SIGN ARTIST Departure - Departure Clinical Impression: Atypical chest pain, Shaking Abdominal pain Qualifiers: Abdominal location: upper abdomen, unspecified Qualified Code(s): R10.10 - Upper abdominal pain, unspecified Constipation Qualifiers: Constipation type: unspecified constipation type Qualified Code(s): K59.00 - Constipation, unspecified Time of Disposition: 12:43 Disposition: Discharge to Home or Self Care Condition: Good Departure Forms: ED Discharge - Pt. Copy, Patient Portal Self Enrollment Instructions: Constipation, Adult (DC) Referrals: JURGEN MERRILL MD [Primary Care Provider] - 1-5 Days Home Medications: Ambulatory Orders Atorvastatin Calcium [Lipitor] 20 mg PO DAILY 02/27/15 Aspirin [Aspirin Adult Low Dose] 81 mg PO DAILY 03/01/15 Phenytoin Sodium Cap Extended [Dilantin Cap] 100 mg PO BID 03/01/15 Metoprolol Tartrate [Lopressor] 50 mg PO BID #60 tab 03/03/15 Diazepam [Valium] 2 mg PO Q8HRS #1 tab 03/13/18 Linaclotide [Linzess] 2 capsule PO DAILY 05/14/19 Phenytoin Sodium Extended 200 mg PO .MOWEFRBEDTIME 05/14/19
--- NOTE | 2019-05-14 12:35 | CT ---
EXAM DESCRIPTION: Abdomen/Pelvis w/Contrast: Computed Tomography. CLINICAL HISTORY: 73 years Male abdominal pain COMPARISON: CT scan of abdomen and pelvis 23 May 2018. TECHNIQUE: Spiral-axial scans at 5.0 x 5.0 mm intervals through the abdomen and pelvis, after nonionic IV contrast no oral contrast. Coronal and sagittal 2.0 mm reconstructions. No delayed scans. No adverse reactions. Total Exam DLP: 987.68 mGy-cm. This exam was performed according to our departmental dose-optimization program which includes automated exposure control, adjustment of the mA and/or kV according to patient size and/or use of iterative reconstruction technique; to reduce radiation dose to as low as reasonably achievable (ALARA). FINDINGS: Lung bases and pleura: Bibasilar pleural-parenchymal scarring. Liver, Stomach, Spleen, Adrenal Glands: 2.3 x 1.5 cm stable appendage on the left adrenal gland with Hounsfield density -44. Consistent with an adenoma. Stomach and other solid organs are negative. Pancreas, Gallbladder, Ducts: Fatty pancreas. At least 2 rim calcified gallstones in the posterior gallbladder abutting the neck, with diameter 1 and 1.5 cm. Also seen on the prior study. No surrounding fatty inflammatory changes. Pancreatic duct not dilated. Kidneys and Ureters: Negative. Mesentery: No free air or free fluid. No fatty stranding. Aorta: Moderate atherosclerotic calcification with minimal distal ectasia and minimal calcification of the major branching vessels including the bilateral renal arteries and the celiac axis. Small Bowel: Negative. Levoscoliosis. Terminal Ileum/Cecum: Cecum distended with gas and fecal matter. Small appendiceal stump or diverticulum. Stable since the prior study. Normal caliber of the TI. . Colon: Mild to moderate distention of the ascending colon, transverse colon and proximal descending colon with fecal matter. Moderate redundancy of the sigmoid colon with minimal fecal matter. No complications Pelvic Organs: Urinary bladder distended with no radiodense stones. Prostate gland abutting the seminal vesicles and the base of the bladder. No free fluid and no enlarged lymph nodes. Spine and Bony Pelvis: Minimal lumbar spondylosis. Bilateral subchondral cyst in the acetabular rims with superior joint space narrowing stable since the prior study. Abdominal Wall/Back Soft Tissues: Small fatty right inguinal hernia not containing bowel. Bilateral small inguinal lymph nodes. Stable since the prior study. IMPRESSION: 1. At least 2 rim calcified gallstones in the gallbladder greatest diameter 1.5 cm. Stable since the prior study. No surrounding fatty inflammatory changes or fluid. Common bile but normal caliber. Fatty pancreas. 2. Moderate constipation proximal to thirds of the colon, minimal fecal matter distal colon. No complications. 3. Mild aortic dilatation, not meeting criteria for aneurysm. Stable since the prior study. No follow-up imaging is recommended. Reference: J Am Julio César Radiol 2013;10:789-794. Electronically signed by: Soham Garcia MD 05/14/2019 12:34 PM [facility]
[2019-05-14 12:58] VITALS: BP 120/74; TEMP 98.7; O2SAT 97
== END 2019-05-14 12:58 | disposition home or self-care (01) ==
LOC: ER 10:14
DX: R10.10 Upper abdominal pain, unspecified (principal); R07.89 Other chest pain; R25.1 Tremor, unspecified; K59.00 Constipation, unspecified; Z95.1 Presence of aortocoronary bypass graft; Z87.891 Personal history of nicotine dependence; I10 Essential (primary) hypertension; Z79.82 Long term (current) use of aspirin

== ENCOUNTER 2019-06-10 08:48 | Day surgery (SDC) | payer OTHER ==
[~2019-06-10 08:48] MED LIST: BUPIVACAINE 0.25% W/EPI 50 ML VIAL INJ ONE; DEXAMETHASONE INJ 10 MG/ML VIAL ONE; KETOROLAC TROMETHAMINE INJ 30 MG/ML VIAL ONE; LIDOCAINE 1% 10 ML VIAL INJ ONE; MAGNESIUM SULFATE INJ 1 GM/2 ML VIAL ONE; PROPOFOL 200 MG/20 ML VIAL IV ONE; SODIUM CHLORIDE 0.9% 50 ML VIAL ONE; ePHEDrine SULF 50 MG/ML ONE; raNITIdine HCL INJ 25 MG/ML VIAL ONE
[2019-06-10] MEDS ORDERED: LACTATED RINGERS 1,000 ML ONE (09:20)
[2019-06-10] MEDS ORDERED: LACTATED RINGERS 1,000 ML IVS ONE ×2 (09:30→11:38)
[2019-06-10] MEDS ORDERED: MIDAZOLAM INJ 2 MG/2 ML VIAL ONE (10:30)
[2019-06-10] MEDS ORDERED: ROCURONIUM BROMIDE 10 MG/ML VIAL ONE (10:31)
[2019-06-10] MEDS ORDERED: fentaNYL CITRATE INJ 50 MCG/ML AMP ONE (10:31)
[2019-06-10] MEDS ORDERED: SUGAMMADEX SODIUM 200 MG/2 ML VIAL IV ONE (11:27)
[2019-06-10] MEDS ORDERED: ONDANSETRON INJ 4 MG/2 ML VIAL ONE (11:47)
[2019-06-10] MEDS ORDERED: HYDROmorphone HCL INJ 2 MG/ML VIAL ONE (11:47)
[2019-06-10] MEDS ORDERED: ONDANSETRON INJ 4 MG/2 ML VIAL IV ONE ×2 (11:51)
[2019-06-10] MEDS ORDERED: HYDROmorphone HCL INJ 2 MG/ML VIAL IV ONE ×8 (11:52→12:42)
[2019-06-10] MEDS ORDERED: MEPERIDINE HCL 50 MG/ML VIAL ONE (12:19)
[2019-06-10] MEDS ORDERED: MEPERIDINE HCL 50 MG/ML VIAL IV ONE (12:20)
[2019-06-10 12:39] VITALS: TEMP 97.8
[2019-06-10] MEDS ORDERED: HYDROcodone 5MG/APAP 325MG 1 EA TAB ONE (13:07)
--- NOTE | 2019-06-10 13:09 | OP ---
DATE OF PROCEDURE: 06/10/19 PREOPERATIVE DIAGNOSIS: 1. Symptomatic cholelithiasis. POSTOPERATIVE DIAGNOSIS: 1. Symptomatic cholelithiasis. PROCEDURE: 1. Laparoscopic cholecystectomy with intraoperative cholangiogram. SURGEON: Red Tinajero MD. ANESTHESIA: General and local. FINDINGS: Cholangiogram revealed normal anatomy with free flow throughout the entire system into the duodenum without filling defect. COMPLICATIONS: None. ESTIMATED BLOOD LOSS: Minimal. SPECIMEN: Gallbladder. CONDITION: Stable. PLAN: Discharge. INDICATION: As stated. PROCEDURE: General anesthesia was induced. The patient was prepped and draped in sterile fashion. Marcaine 0.5% with epinephrine was used at all incision sites. While maintaining upward traction, a carla was made near the base of the umbilicus. Veress needle was introduced. There was free flow of fluid into the peritoneal cavity which was insufflated to an appropriate level with CO2 gas. The 5 mm trocar was placed followed by the camera. There was no evidence of bleeding or bowel injury. The patient was positioned and subxiphoid and lateral ports were placed under direct visualization without difficulty. The gallbladder fundus was grasped and retracted superiorly and laterally. The infundibulum was grasped. The infundibular structures were dissected free. The duct and artery were then visualized. The artery was posterior with a branch going anterior. A clip was placed on the proximal duct and ductotomy performed. The cholangiocatheter was introduced. The cholangiogram revealed the above normal findings. The catheter was removed. Three clips were placed on the distal duct. The duct was ligated and the artery was then ligated on the branch going into the gallbladder. The gallbladder was then dissected off the fossa in toto and removed in the EndoCatch bag. The fossa was examined. The clips were intact. There was no bleeding or bile leak. Under low pressure, it remained hemostatic. The area was irrigated. All aspirate was clear. The subxiphoid fascia was then closed with 0 Vicryl using the suture passer. It was airtight and non-bleeding. The remaining trocars were removed. There was no bleeding from the trocar sites. The wounds were irrigated and closed with Monocryl. Dressings were applied. The patient was awakened and taken to Recovery in stable condition to be discharged. #[id number] cc: Sydni Cunha MD [facility]
[2019-06-10 13:49] VITALS: BP 126/65; O2SAT 96
--- NOTE | 2019-06-11 10:04 | RAD ---
EXAM DESCRIPTION: Fluoroscopy Up to 1Hr CLINICAL HISTORY: 73 years Male, IOC COMPARISON: CT abdomen and pelvis 05/14/2019. Ultrasound abdomen 08/19/2018. TECHNIQUE: Fluoroscopic images from an intraoperative cholangiogram. Fluoroscopy time: 3.1 seconds Fluoroscopic images: 1 Total dose: 0.54 mGy IMPRESSION: Intraprocedural fluoroscopic images saved for the benefit of the surgeon. Cannulation of the cystic duct with opacification of the biliary tree. Nondilated common bile duct and without persistent filling defect or stricture. The pancreatic duct is not visualized. Please refer to procedural report for full details. Electronically signed by: Alfonso Ngo MD 06/11/2019 10:03 AM CREATIVE ENGAGEMENT DIRECTOR
== END 2019-06-10 14:23 | disposition home or self-care (01) ==
LOC: AMB 08:48
PROVIDERS: ATTEND Surgery
DX: K80.10 Calculus of gallbladder with chronic cholecystitis without obstruction (principal); K59.09 Other constipation; I10 Essential (primary) hypertension; G40.909 Epilepsy, unspecified, not intractable, without status epilepticus; E78.00 Pure hypercholesterolemia, unspecified; Z87.891 Personal history of nicotine dependence; Z79.82 Long term (current) use of aspirin; Z79.899 Other long term (current) drug therapy
CPT/HCPCS: 00790; 47563; 76000; A4216; J1100; J1170; J1885; J2175; J2250; J2405; J2780; J3010; J3475; J3490; J7120

== ENCOUNTER 2019-09-05 | Emergency (ER) | payer OTHER, MEDICARE | END 2019-09-05 05:30 | disposition home or self-care (01) | DX: E86.0 Dehydration (principal); F41.9 Anxiety disorder, unspecified; K59.00 Constipation, unspecified; R07.89 Other chest pain; I49.1 Atrial premature depolarization; I49.3 Ventricular premature depolarization; R56.9 Unspecified convulsions; I10 Essential (primary) hypertension; Z95.1 Presence of aortocoronary bypass graft; Z90.49 Acquired absence of other specified parts of digestive tract; Z79.899 Other long term (current) drug therapy; Z79.82 Long term (current) use of aspirin; Z88.8 Allergy status to other drugs, medicaments and biological substances; Z87.891 Personal history of nicotine dependence ==

== ENCOUNTER → 2019-12-20 | Outpatient (CLI) | payer MEDICARE | LOC: GMAE 10:31 | PROVIDERS: ATTEND Family Medicine | DX: Z12.5 Encounter for screening for malignant neoplasm of prostate (principal); I10 Essential (primary) hypertension | CPT/HCPCS: 84443; G0103 ==

== ENCOUNTER 2020-03-02 05:39 | Day surgery (SDC) | payer MEDICARE ==
[2020-03-02] MEDS ORDERED: LACTATED RINGERS 1,000 ML ONE (06:29)
[2020-03-02] MEDS ORDERED: PROPOFOL 200 MG/20 ML VIAL IV ONE (07:00)
[2020-03-02] MEDS ORDERED: LIDOCAINE 1% 10 ML VIAL INJ ONE (07:00)
--- NOTE | 2020-03-02 09:16 | OP ---
DATE OF PROCEDURE: 03/02/20 PREOPERATIVE DIAGNOSIS: 1. Screening colonoscopy. POSTOPERATIVE DIAGNOSIS: 1. Colonic polyp in the cecum. PROCEDURE: 1. Colonoscopy with excision of single polyp, 2 mm, in the cecum. SURGEON: Red Tinajero MD ANESTHESIA: General. FINDINGS: As described. COMPLICATIONS: None. ESTIMATED BLOOD LOSS: None. PLAN: Discharge. INDICATION: As stated. PROCEDURE: General anesthesia was induced in the lateral position. Digital rectal exam was normal. The colonoscope was inserted. There were minimal internal hemorrhoids. The colon was full of fluid, at least 500 to 600 mL when we were done, but we aspirated all as we went. We ultimately got to the cecum with minimal difficulty. Upon withdrawal, a single polyp was identified on a fold in the distal cecum. This was excised completely. It was about a 2 mm polyp. On further withdrawal, we had a good view after aspirating the liquid stool on the way in and no additional polyps, mucosal abnormalities or stricture were seen. Otherwise, normal scope except for the one polyp. The patient tolerated the procedure and was taken to Recovery to be discharged. #[id number] cc: Sydni Cunha MD [facility]
[2020-03-02 10:34] VITALS: BP 138/72; TEMP 97; O2SAT 99
== END 2020-03-02 10:10 | disposition home or self-care (01) ==
LOC: AMB 05:39
PROVIDERS: ATTEND Surgery
DX: Z12.11 Encounter for screening for malignant neoplasm of colon (principal); D12.0 Benign neoplasm of cecum; K64.8 Other hemorrhoids; I10 Essential (primary) hypertension; G40.909 Epilepsy, unspecified, not intractable, without status epilepticus; E78.00 Pure hypercholesterolemia, unspecified; Z79.82 Long term (current) use of aspirin; Z79.899 Other long term (current) drug therapy; Z87.891 Personal history of nicotine dependence; Z95.1 Presence of aortocoronary bypass graft
CPT/HCPCS: 00812; 45380; 88305; J3490; J7120